=== PATIENT | female | born 1960 | race African-American/Black ===

== ENCOUNTER 2020-07-17 11:43 | Emergency (ER) | payer OTHER ==
[2020-07-17 22:50] LABS: SARS-CoV-2 MS2 Positive; SARS-CoV-2 N Gene Positive; SARS-CoV-2 S Gene Positive; SARS-CoV-2 by NAA DETECTED (NotDetected); SARS-CoV-2 orf1ab Positive
== END 2020-07-17 12:15 | disposition home or self-care (01) ==
LOC: ERS 11:43
DX: U07.1 COVID-19 (principal)
CPT/HCPCS: 87635; 99283; U0003

== ENCOUNTER 2022-08-14 06:56 | Outpatient (CLI) | payer BC | END 2022-08-14 06:57 | disposition home or self-care (01) | LOC: BICULT 06:56 | PROVIDERS: ATTEND Family Medicine | DX: R10.10 Upper abdominal pain, unspecified (principal); Z90.49 Acquired absence of other specified parts of digestive tract | CPT/HCPCS: 76705 ==